=== PATIENT | female | born 1965 | race Caucasian/White ===

== ENCOUNTER 2020-07-18 14:37 | Inpatient (IN) | payer SELFPAY ==
[~2020-07-18] VITALS: Ht 157.5 cm; Wt 60.6 kg
[2020-07-18 14:40] VITALS: Ht 157.5 cm; Wt 60.6 kg
--- NOTE | 2020-07-18 15:14 | NUR ---
EMT AT THE BEDSIDE FOR EKG.
--- NOTE | 2020-07-18 15:57 | NUR ---
PT BIB SELF C/O NAUSEA, DIARRHEA AND LOSS OF APPETITE X3 DAYS . NO VOMITING NOTED AT THIS TIME. FEVER NOTED UPON TRIAGE AND PT GIVEN TYLENOL PO. PT DENIES COUGH, SOB AND CONTACT WITH COVID POSITIVE PEOPLE. PT AAOX4, LUNG SOUNDS CTA, RESP E/U, NO DISTRESS NOTED. PT IN GOWN, PLACED ON FULL CM, NSR NOTED. MSE COMPLETED BY MD. PT UNABLE TO GIVE URINE AT THIS TIME. LEFT URINCE CUP AT BEDSIDE, INSTRUCTED PT OF USE. IV FLUIDS INFUSING, NO INFILTRATION NOTED OR PAIN TO SITE. WILL CONTINUE TO MONITOR.
[2020-07-18 16:08] LABS: BASOPHIL % 0.2 % (0-2); PLATELET COUNT 260 x10^3mcL (130-400); RED CELL DISTRIBUTION WIDTH 13.4 % (11.5-14.5)
[2020-07-18 16:23] LABS: CALCIUM 8.7 mg/dL (8.5-10.1); CARBON DIOXIDE 20.4 mmol/L (21-32); CHLORIDE SERUM 93 mmol/L (98-107); CREATININE SERUM 1.1 mg/dL (0.6-1.0); GFR1 55 mL/min; GLUCOSE SERUM 342 mg/dL (74-106); POTASSIUM SERUM 3.7 mmol/L (3.5-5.1); SODIUM SERUM 127 mmol/L (136-145)
--- NOTE | 2020-07-18 16:25 | NUR ---
XRAY AT THE BEDSIDE
[2020-07-18 16:29] LABS: ALBUMIN 3.7 g/dL (3.4-5.0); ALKALINE PHOSPHATASE 136 U/L (46-116); ALT/SGPT 38 U/L (14-59); AST/SGOT 29 U/L (15-37); BILIRUBIN TOTAL 0.39 mg/dL (0.20-1.00); C REACTIVE PROTEIN 10.8 mg/dL (<=0.9); LACTIC DEHYDROGENASE (LDH) 169 U/L (100-190); TOTAL PROTEIN, SERUM 8.2 g/dL (6.4-8.2)
--- NOTE | 2020-07-18 16:36 | NUR ---
IV TO RAC NOTED INFILTRATED, MILD SWELLING NOTED TO UPPER RIGHT EXTREMITY, NO REDNESS NOTED. IV NOTED BENT UPWARDS. IV DISCONTINUED AND WARM COMPRESS PLACED TO RIGHT UPPER EXTRMITIY. AWARE.
--- NOTE | 2020-07-18 17:03 | NUR ---
IV PLACED TO LEFT HAND BY JOHNY CANCER REGISTRY COORDINATOR. IV FLUSHED WITH 10CC SALINE, NO INFILTRATION NOTED TO PAIN TO IV SITE. IV PATENT. IV FLUIDS INFUSING, NO PROBLEM AT THIS TIME. RIGHT UPPER EXTREMITY SWELLING NOTED IMPROVED, NO SWELLING NOTED AT THIS TIME. PT DENIES ANY PAIN TO RIGHT UPPER EXTREMITY. WILL CONT TO MONITOR.
[2020-07-18 17:54] LABS: AMYLASE 38 U/L (25-115); LIPASE 106 IU/L (73-393)
--- NOTE | 2020-07-18 18:15 | NUR ---
PER VERBAL ORDER FORM DR PETERSEN, CHECK PT POINT OF CARE GLUCOSE.
--- NOTE | 2020-07-18 19:09 | NUR ---
GAVE REPORT TO JOHN WANG AND PRO WANG WHO WILL ASSUME FURTHER CARE OF THIS PT.
--- NOTE | 2020-07-18 19:33 | NUR ---
PT RESTING COMFORTABLY ON GURNEY BREATHING EVEN AND UNLABORED. PT STATES DECREASED FREQUENCY IN DIARRHA. DENIES ANY ABD PAIN OR DISCOMFORT. PT AWAKE AND ALERT. BREATHING EVEN UNLABORED. NO DISTRESS. NOTED. PT WAITING ADMISSION. CONTINUE TO MONITOR.
--- NOTE | 2020-07-18 20:29 | NUR ---
PT IS A&O X4, BREATHING IS EVEN AND UNLABORED, AND NO DISTRESS. WILL CONTINUE TO MONITOR.
--- NOTE | 2020-07-18 21:37 | NUR ---
PT IS A&O X4, BREATHING IS EVEN AND UNLABORED, NO DISTRESS. WILL CONTINUE TO MONITOR.
[2020-07-18 21:46] LABS: UA SPECIFIC GRAVITY <=1.005 (1.005-1.035); microscopic required? YES; urine erythrocyte TRACE (NEGATIVE)
[2020-07-18 21:53] LABS: AMPHETAMINE QUAL UR NONE DETECTED (See below)
--- NOTE | 2020-07-18 22:28 | NUR ---
PT IS A&O X4, BREATHING IS EVEN AND UNLABORED, NO DISTRESS. WILL CONTINUE TO MONITOR.
--- NOTE | 2020-07-18 23:23 | NUR ---
PT ARRIVED ON THE FLOOR BY FITO AND RN. NO S/S OF DISTRESS OR DISCOMFORT. PT BREATHING EVEN AND UNLABORED ON RA 99% SPO2 CTA BILATERLA LUNGS. IV LHAND 22G. NO INFILTRATION. TELE 21. SR WITH DEPRESSED T WAVE. NO CP NO PALPITATIONS. GEN WEAKNESS. AMBULATES TO THE RESTROOM. ACTIVE BOWEL SOUNDS, FLAT SOFT NON TENDER. WARM DRY SKIN. NO BREAKDOWN. STRONG RADIAL PULSES, MODERATE PEDAL PLSES. DENIES PAIN AT THIS TIME. NO FEVER. BED IN LOW POSITION, SIDE RAILS UP X2, CALL LIGHT WITHIN REACH. WILL CONTINUE TO MONITOR PATIENT AND OFFER SUPPORT.
[2020-07-19 00:16] VITALS: BP 115/68
--- NOTE | 2020-07-19 04:56 | NUR ---
PT RESTING, EYES OPEN. NO S/S OF DISTRESS OR DISCOMFORT. PT AMBULATED TO THE RESTROOM, PT C/O STILL HAVING DIARRHEA. IV RUNNING 100ML/HR, NO S/S OF INFILTRATION. TELE 21 SR W T WAVEDEPRESSION. NO CP OR PALPITATIONS. PT BREATHING EVEN AND UNLABORED ON RA 99% SPO2. BED IS IN LOW POSITION, SIDE RAILS UPX2 CALL LIGHT WITHIN REACH.
[2020-07-19 05:50] VITALS: BP 111/64
--- NOTE | 2020-07-19 06:32 | NUR ---
PT TOOK MORNING MEDICATIONS WITHIOUT INCIDENT. BS 134, NO COVERAGE. NO S/S OF DISTRESS OR DISCOMFORT. PT IS STILL HAVING SMALL AMOUNTS OF DIARRHEA. WILL CONTINUE TO MONITOR PATIENT.
--- NOTE | 2020-07-19 07:30 | NUR ---
RECEIVED PT FROM GROUP INSURANCE SPECIALIST RN. REESE. TELE#21. DENIES CHEST PAIN/PRESSURE. RESPIRATIONS EQUAL AND UNLABORED ON RA, DENIES ANY SOB AT THIS TIME. PT DENIES ANY COUGH AT THIS TIME. PT DENIES ANY N/V. PT DENIES ANY PAIN AT THIS TIME. PT REPORTS STILL HAVING WATERY STOOLS. HAT PLACED IN BATHROOM, INSTRUCTED PT TO USE HAT FOR STOOLS FOR STOOL SPECIMEN, PT VERBALIZED UNDERSTANDING. IV TO LH PATENT AND INFUSING, NO REDNESS OR SWELLING NOTED. WILL CONTINUE TO MONITOR. CALL LIGHT IN REACH. BED IN LOWEST POSITION.
[2020-07-19 08:43] VITALS: BP 110/61
--- NOTE | 2020-07-19 09:13 | NUR ---
PT SITTING UP IN BED. NO ACUTE RESP DISTRESS NOTED ON RA. PT DENIES ANY PAIN AT THIS TIME. PT DENIES ANY N/V. NO BM YET. IV TO LH PATENT AND INFUSING. WILL CONTINUE TO MONITOR. CALL LIGHT IN REACH. BED IN LOWEST POSITION.
--- NOTE | 2020-07-19 11:40 | NUR ---
PT SITTING UP IN BED. NO ACUTE RESP DISTRESS NOTED ON RA. PT DENIES ANY PAIN OR N/V AT THIS TIME. BLOOD SUGAR CHECKED WAS 139, NO COVERAGE NEEDED. WILL CONTINUE TO MONITOR. CALL LIGHT IN REACH. BED IN LOWEST POSITION.
[2020-07-19 13:04] VITALS: BP 113/63
--- NOTE | 2020-07-19 14:10 | NUR ---
PT SITTING UP IN BED. STOOL SPECIMEN OBTAINED, NOTED WATERY BROWN STOOL, SPECIMEN SENT TO LAB. IV ANTIBIOTICS INFUSING ORDERED, NO REDNESS OR SWELLING NOTED. PT DNENIES ANY PAIN AT THIS TIME. WILL CONTINUE TO MONITOR. CALL LIGHT IN REACH. BED IN LOWEST POSITION.
--- NOTE | 2020-07-19 16:45 | NUR ---
Discount pharmacy card and list to low cost medical clinics given to patient by Gayatri Guerrier.
[2020-07-19 16:59] VITALS: BP 119/81
--- NOTE | 2020-07-19 19:58 | NUR ---
RECEIVED PATIENT REPORT FROM NICOLE WANG. PATIENT IS AAOX4, DENIES [place]/DIZZINESS. BREATHING EVEN AND UNLABORED ON RA WITH NO RESP DISTRESS NOTED. PATIENT DENIES COUGH. PATIENT REPORTS CONTINUE TO HAVE WATERY STOOL X3 DURING THE DAY, DENIES ABD PAIN/N/V. AMBULATORY WITH BRP. PATIENT IV LH PATENT INFUSING WELL WITH NO SIGNS OF INFILRTRAION. TELE #21 SR HR 73 ON MONITOR, DENIES CHEST PAIN. PALPABLE PULSES, NO EDEMA NOTED. CALL BUTTON WITHIN REACH. WILL CONTINUE TO MONITOR.
[2020-07-19 20:37] VITALS: BP 102/57
--- NOTE | 2020-07-20 06:05 | NUR ---
PATIENT SLEPT MOST OF THE NIGHT WITH NO ACUTE DISTRESS. UNLABORED BREATHING ON RA. NO RESP DISTRESS. IV PATENT INFUSING WELL WITH NO SIGNS OF INFILTRATION. PATIENT REPORTS HAVING SMALL WATERY STOOL X1. DENIES PAIN. MEDICATED PER EMAR. ALL NEEDS MET. CALL BUTTON WITHIN REACH. SAFETY PRECAUTIONS IN PLACE. WILL MONITOR.
[2020-07-20 06:17] VITALS: BP 114/61
[2020-07-20 07:15] LABS: BASOPHIL % 0.9 % (0-2); PLATELET COUNT 226 x10^3mcL (130-400); RED CELL DISTRIBUTION WIDTH 13.3 % (11.5-14.5)
--- NOTE | 2020-07-20 07:27 | NUR ---
PATIENT IN NO DISTRESS. ENDORSED CARE TO NICOLE WANG, ALL QUESTIONS ADDRESSED.
--- NOTE | 2020-07-20 07:30 | NUR ---
RECEIVED PT FROM SUPERVISOR SKI PRODUCTION RN. Jeri/CIERRA. TELE#21, DENIES CHEST PAIN/PRESSURE. RESPIRATIONS EQUAL AND UNLABORED ON RA. DENIES ANY SOB OR COUGH AT THIS TIME. PT REPORT DIARRHEA HAS IMPROVED SINCE YESTERDAY. PT DENIES ANY ABDOMINAL PAIN. PT DENIES ANY N/V. IV TO LH PATENT AND INFUSING, NO REDNESS OR SWELLING NOTED. WILL CONTINUE TO MONITOR. CALL LIGHT IN REACH. BED IN LOWEST POSITION.
[2020-07-20 07:40] LABS: ALKALINE PHOSPHATASE 85 U/L (46-116); ALT/SGPT 41 U/L (14-59); AST/SGOT 39 U/L (15-37); BILIRUBIN TOTAL 0.3 mg/dL (0.20-1.00); C REACTIVE PROTEIN 2.4 mg/dL (<=0.9); CARBON DIOXIDE 24.6 mmol/L (21-32); CHLORIDE SERUM 106 mmol/L (98-107); CREATININE SERUM 0.6 mg/dL (0.6-1.0); GFR1 > 60 mL/min; GLUCOSE SERUM 123 mg/dL (74-106); POTASSIUM SERUM 3.3 mmol/L (3.5-5.1); SODIUM SERUM 140 mmol/L (136-145)
[2020-07-20 07:43] LABS: ALBUMIN 2.6 g/dL (3.4-5.0)
--- NOTE | 2020-07-20 08:10 | NUR ---
PT IN BED SLEEPING COMFORTABLY. PT DENIES ANY PAIN AT THIS TIME. PT DENIES ANY N/V. IV TO LH PATENT AND INFUSING. IV ANTIBIOTICS INFUSING ORDERED. NO REDNESS OR SWELLING NOTED. WILL CONTINUE TO MONITOR. CALL LIGHT IN REACH. BED IN LOWEST POSITION.
[2020-07-20 08:17] VITALS: BP 104/59
--- NOTE | 2020-07-20 10:59 | NUR ---
DR. DORSEY AT BEDSIDE. PER DR. DORSEY PT CAN RESUME DIET AND IF TOLERATING CAN D/C HOME.
[2020-07-20 12:41] VITALS: BP 109/65
[2020-07-20 12:42] VITALS: BP 109/65
[2020-07-20] MEDS ORDERED: LEVAQUIN500 M1 PO (13:45)
[2020-07-20] MEDS ORDERED: LANTI SQ (13:45)
[2020-07-20] MEDS ORDERED: INSULIN SYRING1 EA29 SQ (13:46)
[2020-07-20] MEDS ORDERED: EASY COMFORT ALCO70% TOP (13:46)
[2020-07-20] MEDS ORDERED: GLUCOSE TEST S1 EACH MC (13:47)
[2020-07-20] MEDS ORDERED: BLOOD GLUCOSE1 EAC3 MC (13:48)
[2020-07-20] MEDS ORDERED: HUMALOG100 UNIT/1 SQ (14:01)
[2020-07-20] MEDS ORDERED: BLOOD LANCETS1 EACH TOP (14:23)
--- NOTE | 2020-07-20 15:00 | NUR ---
PT SITTING UP IN BEDSIDE. PT GIVEN DISCHARGE INSTRUCTIONS, TRANSLATED BY PRISCILLA MELISSA. PT HOW TO CHECK BLOOD SUGARS, PT RETURNED DEMONSTRATION. EXPLAINED TO PT TO CHECK BLOOD SUGARS BEFORE EVERY MEAL AND BEFORE BED. PT INSTRUCTED TO TAKE REGULAR INSULIN IF BLOOD SUGARS ARE GREATER THAN 150, PT EXPLAINED ON HOW TO FOLLOW INSULIN SLIDING SCALE. PT INSTRUCTED TO TAKE LANTUS 12 UNITS AT BEDTIME IF BLOOD SUGARS ARE ABOVE 150. PT INSTRUCTED ON HOW TO DRAW UP INSULIN, PT RETURNED DEMONSTRATION. PT MADE AWARE OF NEW PRESCRIPTION FOR LEVAQUIN TO BE TAKE FOR THE NEXT 5 DAYS. PT ASKING FOR FOR OFF WORK NOTED PROVIDED UNTIL 07/23. PT INSTRUCTED TO SELF QUARANTINE UNTIL COVID RESULTS ARE RECEIVED. PT INSTRUCTED TO CALL DISCHARGE OFFICE TOMORROW TO FOLLOW UP ON COVID RESULTS. ALL QUESTIONS AND CONCERNS ADDRESSED. NO PROBLEMS ENCOUNTERED. IV TO REMOVED CATHETER INTACT. TELE RETURNED TO DECATOR OPERATOR VIRGINA
== END 2020-07-20 15:22 | disposition home or self-care (01) | DRG 871 ==
LOC: ED 14:37 → MU 17:06 → DU 17:06
PROVIDERS: Specialist; ADMIT Internal Medicine; ATTEND Internal Medicine
DX: A41.9 Sepsis, unspecified organism (principal); N17.0 Acute kidney failure with tubular necrosis; D68.59 Other primary thrombophilia; E87.1 Hypo-osmolality and hyponatremia; R65.20 Severe sepsis without septic shock; E87.8 Other disorders of electrolyte and fluid balance, not elsewhere classified; E11.65 Type 2 diabetes mellitus with hyperglycemia; K52.9 Noninfective gastroenteritis and colitis, unspecified
CPT/HCPCS: 36600; 82962; 83880; 85378; 87046; 87046-59; 87804; G0378; J1644; J1815; J3370; J3490; J7030; Q0092; U0003-CS